=== PATIENT | male | born 1965 | race Caucasian/White ===

== ENCOUNTER 2019-06-14 06:06 | Inpatient (IN) ==
--- NOTE | 2019-05-25 10:20 | PAT Medication Instructions ---
Medication Instructions Date of Service May 25, 2019 Home Medications Sertraline 1 tab PO QAM 05/21/19 [History Confirmed 05/21/19] levothyroxine 112 mcg PO QAM 05/21/19 [History Confirmed 05/21/19] lisinopril 20 mg PO QAM 05/21/19 [History Confirmed 05/21/19] naproxen sodium [Aleve] 220 mg PO DAILY PRN 05/21/19 [History Confirmed 05/21/19] ASK your surgeon for instructions naproxen sodium [Aleve] 220 mg PO DAILY PRN 05/21/19 [History Confirmed 05/21/19] DO NOT take the morning of surgery lisinopril 20 mg PO QAM 05/21/19 [History Confirmed 05/21/19] Take morning of surgery With a small sip of water, OTHERWISE NOTHING TO EAT OR DRINK AFTER MIDNIGHT: Sertraline 1 tab PO QAM 05/21/19 [History Confirmed 05/21/19] levothyroxine 112 mcg PO QAM 05/21/19 [History Confirmed 05/21/19] Other Notes If you have any questions please call us at [phone] or [phone] or [phone] or [phone]
--- NOTE | 2019-05-26 10:40 | Anesthesiology Consultation ---
Date of Service May 26, 2019 Assessment & Plan (1) Encounter for pre-operative examination: Possible difficult intubation: due to anatomy Chart Review Chart Review: Acceptable Risk for Surgery and Patient seen in Pre Admission Testing Teaching & Discussion Pre-Anesthesia Teaching/Discussion Notes: Instructed NPO after midnight before surgery,except medications with 15 cc of water. Medication instructions provided according to the PAT guidelines. History Surgery Operation Date: 06/14/19 11:00 Proposed Procedures p Right Total Knee Arthroplasty - Miguel Freeman Height/Weight Height: 5 ft 11 in Weight: 179.8 kg Allergies Allergy/AdvReac Type Severity Reaction Status Date / Time No Known Allergies Allergy Verified 05/21/19 08:57 Medications Home Medications Medication Instructions Recorded Confirmed Last Taken Sertraline 1 tab PO QAM 05/21/19 05/21/19 Unknown levothyroxine 112 mcg PO QAM 05/21/19 05/21/19 Unknown lisinopril 20 mg PO QAM 05/21/19 05/21/19 Unknown naproxen sodium [Aleve] 220 mg PO DAILY PRN 05/21/19 05/21/19 Unknown Past Medical History Medical History Anxiety Arthritis Hypertension Hypothyroidism Morbid obesity Sleep apnea CPAP Exercise / Class Metabolic Activity II 4-5 Yardwork/Stairs/Walk up hill (one flight of stairs (no chest pain or sob)) Past Surgical History Surgical History History of arthroscopy RIGHT KNEE History of colonoscopy History of herniorrhaphy r/l inguinal (hernia repairs X3 total) Past Anesthesia History No Hx of Anesthesia Complications and No Family Hx of Anesthesia Complications History of PONV No Hx of PONV and Hx of Motion Sickness (mild) Social History Smoking Status: Never smoker tobacco type: smokeless tobacco Do You Dip or Chew Tobacco: Yes (1 CAN PER 3 DAYS- ADVISED NPO AM DOS) Hx Alcohol Use: Yes Alcohol type: beer alcohol intake frequency: 3 or more drinks per day (AT MOST 4 BEERS DAILY (EVENING/NO AM ETOH USE)) Hx Substance Use: Yes substance use type: other Substance Use Type Other:: CBD OIL TOPICALLY TO RIGHT KNEE-1 X A WEEK Review of Systems Patient denies chest pain, shortness of breath, dyspnea on exertion, cough, wheezing, palpitations. Physical Exam Vital Signs VITALS BP 165/95 P 98 TEMP 98.9 SP02 95%RA RESP 18 PHYSICAL Full neck and c-spine range of motion. Full TMJ range of motion. TMD 3 finger breaths (difficult to palpate) Mallampati Score 3 Dentition: upper front right tooth chipped, poor dentition Lungs: clear throughout to auscultation Cardiac: regular rate and rhythm, no murmurs noted Spine: normal Carotid arteries: negative bruit Extremities: no edema Very short, thick neck* Testing Laboratory Results 05/26/19 11:06 05/26/19 11:06 PT 10.4 Seconds (9.0-12.0) 05/26/19 11:06 INR 1.0 (0.9-1.1) 05/26/19 11:06 APTT 27.6 Seconds (21.0-31.0) 05/26/19 11:06 Urine Color Yellow 05/26/19 Unknown Urine Appearance Clear (Clear) 05/26/19 Unknown Urine pH 5.0 (4.5-7.5) 05/26/19 Unknown Ur Specific [place] 1.021 (1.000-1.030) 05/26/19 Unknown Urine Protein Negative (Negative) 05/26/19 Unknown Urine Glucose (UA) Negative (Negative) 05/26/19 Unknown Urine Ketones Negative (Negative) 05/26/19 Unknown Urine Nitrite Negative (Negative) 05/26/19 Unknown Ur Leukocyte Esterase Negative (Negative) 05/26/19 Unknown Blood Type O Positive 05/26/19 11:06 Antibody Screen NEGATIVE 05/26/19 11:06 Electrocardiogram Date: 05/26/19 Findings: + NSR @ (91) Chest X-Ray Date: 05/26/19 Lung volumes are normal. There is no pneumothorax or pleural effusion. There is no consolidation or evidence for pulmonary edema. Cardiac size is at upper limits of normal. IMPRESSION: No acute cardiopulmonary findings.
--- NOTE | 2019-05-26 11:33 | XRay Report ---
XR chest Pre-admission PA/Lat CLINICAL HISTORY: Preoperative evaluation. COMPARISON STUDY: No previous studies for comparison. FINDINGS: Lung volumes are normal. There is no pneumothorax or pleural effusion. There is no consolid ation or evidence for pulmonary edema. Cardiac size is at upper limits of normal. IMPRESSION: No acute cardiopulmonary findings. ACT 112: Negative or not required by law. Electronically signed by: Oracio Diaz M.D. 05/26/2019 11:31 AM
[2019-05-26 12:54] LABS: Appearance Urine Clear (Clear); Bilirubin Urine Negative (Negative); Blood Urine Negative (Negative); Color Urine Yellow; Glucose Urine UA Negative (Negative); Ketones Urine Negative (Negative); Leukocyte Esterase Urine Negative (Negative); Nitrite Urine Negative (Negative); Protein Urine Negative (Negative); Specific Gravity Urine 1.021 (1.000-1.030); Urobilinogen Urine Negative (Negative)
[2019-05-26 12:57] LABS: Eosinophils # (auto) 0.16 K/uL (0-0.5); Eosinophils % (auto) 1.8 %; Hematocrit (blood only) 46.7 % (42-52); Hemoglobin 15.5 g/dL (14.0-18.0); Immature Granulocytes # (auto) 0.01 K/uL (0.00-0.02); Immature Granulocytes % (auto) 0.1 %; Lymphocytes # (auto) 2.26 K/uL (1.2-3.4); Lymphocytes % (auto) 25.7 %; Mean Corpuscular Hemoglobin 30.6 pg (25-34); Mean Corpuscular Hgb Conc 33.2 g/dL (32-36); Mean Corpuscular Volume 92.3 fL (80-100); Mean Platelet Volume 11.2 fL (7.4-10.4); Monocytes % (auto) 9.1 %; Neutrophils # (auto) 5.55 K/uL (1.4-6.5); Neutrophils % (auto) 63.3 %; Platelet Count 190 K/uL (130-400); RDW Coefficient of Variation 13.8 % (11.5-14.5); RDW Standard Deviation 46.6 fL (36.4-46.3); Red Blood Count 5.06 M/uL (4.7-6.1); White Blood Count 8.78 K/uL (4.8-10.8)
[2019-05-26 13:00] LABS: Partial Thromboplastin Time 27.6 Seconds (21.0-31.0); Prothrombin Time 10.4 Seconds (9.0-12.0)
[2019-05-26 13:02] LABS: Albumin Level 3.8 gm/dl (3.4-5.0); BUN Creatinine Ratio 13.7 (10-20); Calcium 9.4 mg/dl (8.5-10.1); Creatinine Clr Calc Pharmacy 116.4 ml/min; Est GFR (African American) 77.7; Est GFR (Non-African American) 67.1; Potassium 4.7 mmol/L (3.5-5.1)
[2019-05-26 13:05] LABS: Bilirubin,Total 0.5 mg/dl (0.2-1); Total Protein 7.8 gm/dl (6.4-8.2)
--- NOTE | 2019-05-26 15:29 | Electrocardiogram Report ---
Test Reason : Blood Pressure : / mmHG Vent. Rate : 091 BPM Atrial Rate : 091 BPM P-R Int : 144 ms QRS Dur : 090 ms QT Int : 384 ms P-R-T Axes : 048 -02 049 degrees QTc Int : 472 ms Normal sinus rhythm Normal ECG No previous ECGs available Confirmed by Ovidio Summers ([id number]) on 05/26/2019 3:29:31 PM Referred By: Miguel Freeman Confirmed By:Ovidio Summers
--- NOTE | 2019-06-11 13:12 | History & Physical Report ---
Date of Service June 11, 2019 Assessment & Plan (1) Degenerative joint disease of right knee: plan is to be admitted and undergo right tka and be dischared with home pt History of Present Illness Chief Complaint: right knee pain Primary Care Provider: Clyde Chiu DO pt has had right knee pain for years. cant do adls and has tried injections, therapy and nsaids without relief. Allergies Allergy/AdvReac Type Severity Reaction Status Date / Time No Known Allergies Allergy Verified 05/21/19 08:57 Home Medications Home Medications Medication Instructions Recorded Confirmed Type Sertraline 1 tab PO QAM 05/21/19 05/21/19 History levothyroxine 112 mcg PO QAM 05/21/19 05/21/19 History lisinopril 40 mg PO QAM 05/21/19 06/09/19 History naproxen sodium [Aleve] 220 mg PO DAILY PRN 05/21/19 05/21/19 History Past Med/Surg History Medical History Anxiety Arthritis Hypertension Hypothyroidism Morbid obesity Sleep apnea CPAP Surgical History History of arthroscopy RIGHT KNEE History of colonoscopy History of herniorrhaphy r/l inguinal (hernia repairs X3 total) Social History Preferred Language: [place]i Communication Ability: Effective Repeat Chief Required: No Beliefs That Will Affect Care: None Current Living Situation: Spouse and Family Other Information That Helps Us Care for You: No Feels Safe at Home: Yes Safety Concerns: Feels Safe At This Time Smoking Status: Never smoker Tobacco Type: smokeless tobacco ; Do You Dip or Chew Tobacco: Yes (1 CAN PER 3 DAYS- ADVISED NPO AM DOS) ; Second Hand Exposure: Yes (AT LOCAL CLUB) ; Hx Alcohol Use: Yes Alcohol type: beer Hx Substance Use: Yes substance use type: other Substance Use Type Other:: CBD OIL TOPICALLY TO RIGHT KNEE-1 X A WEEK Review of Systems All systems reviewed & are unremarkable except as noted in HPI & below Physical Exam Constitutional: WD/WN, vitals as above Neck: trachea midline, no thyromegaly Respiratory: normal respiratory effort, lungs clear to auscultation Cardiovascular: RRR, no murmur, no edema Gastrointestinal (Abdomen): normal bowel sounds, soft, nontender, no hepatosplenomegaly Musculoskeletal: Knee: + limited ROM of knee, + knee ROM with crepitation, + joint line tenderness and + varus alignment
[~2019-06-14 06:06] MED LIST: ACETAMINOPHEN 500 MG TAB PO SCH; BUPIVACAINE LIPOSOME/PF 266 MG, BUPIVACAINE/EPINEPHRINE 50 ML, SODIUM CHLORIDE 0.9% 30 ... INFIL SCH; CEFAZOLIN 3000MG 72.5 ML IV SCH; CeleBREX 200 MG CAP PO SCH; FAMOTIDINE 20 MG TAB PO SCH; LR 500ML BOLUS, THEN 15ML/HR IV SCH; METOCLOPRAMIDE HCL 10 MG TABLET PO SCH; ROPIVACAINE 0.5% HCL/PF 150 MG, BUPIVACAINE 0.5% MPF 30 ML, EPINEPHrine 30MG/30ML (OR U... INSTIL SCH; TRANEXAMIC ACID / 0.7% NACL 1,000 MG/100 ML BAG IV SCH; TRANEXAMIC ACID 1,000 MG **IV Intra-op IV SCH; dexAMETHasone 4 MG TAB PO SCH
[2019-06-14] MEDS ORDERED: ROPIVACAINE 0.5% 5 MG/ML 30 ML VIAL ONE (06:37)
[2019-06-14] MEDS ORDERED: BUPIVACAINE 0.5 % 5 MG/1 ML PF 10ML VIAL ONE (06:37)
--- NOTE | 2019-06-14 06:46 | History & Physical Bridge Note ---
Date of Service June 14, 2019 History & Physical Bridge Note I have examined the patient, reviewed the History & Physical and in the interval since the performance of the History & Physical I have noted the following changes of clinical significance: no changes noted
[2019-06-14] MEDS ORDERED: MIDAZOLAM HCL 1 MG/ML 2ML VIAL ONE ×2 (07:01→08:25)
[2019-06-14] MEDS ORDERED: PROPOFOL IV EMULSION 10 MG/ML 20 ML VIAL IV ONE (07:01)
[2019-06-14] MEDS ORDERED: LIDOCAINE HCL 2% 2 ML VIAL/AMP(20MG/ML) INFIL ONE (07:01)
[2019-06-14] MEDS ORDERED: BACITRACIN INJ 50,000 UNIT VIAL ONE (07:16)
[2019-06-14] MEDS ORDERED: ORTHO JOINT ANESTHETIC ONE (07:16)
[2019-06-14] MEDS ORDERED: ePHEDrine sulfate 50 MG/ML AMP IV PRN (07:39)
[2019-06-14] MEDS ORDERED: ONDANSETRON INJ 2 MG/ML 2 ML VIAL IV PRN ×2 (07:39→10:57)
[2019-06-14] MEDS ORDERED: ATROPINE SULFATE 0.1 MG/ML 10ML SYR IV PRN (07:39)
[2019-06-14] MEDS ORDERED: KETOROLAC 30 MG/ML VIAL IV PRN (07:39)
[2019-06-14] MEDS ORDERED: HYDROmorphone INJ 1 MG/ML SYRINGE IV PRN (07:39)
[2019-06-14] MEDS ORDERED: PHENYLEPHRINE 100MCG/ML 5ML SYR ONE (08:30)
--- NOTE | 2019-06-14 09:08 | Operative Report ---
Post Operative Report Pre & Post Diagnosis Operation Date: 06/14/19 08:15 Pre-Op Diagnosis: RIGHT KNEE OSTEOARTHRITIS Post-Op Diagnosis: RIGHT KNEE OSTEOARTHRITIS I identified the patient and participated in the time-out.: Yes Procedure Operation Date: 06/14/19 08:15 Actual Procedures p Right Total Knee Arthroplasty(Right) - Miguel Freeman Surgeon Miguel Freeman [employer] Foreperson Misael Jung PA-C Estimated Blood Loss 20 Findings Consistent with Post-Op Diagnosis Specimens None Complications none Disposition Disposition: Recovery Room Description of Procedure IMPLANTS USED: [employer] maxney 2 knee size 6 cemented femoral component, a size 6 tibial component, a size 10 PS insert and size 32 all polyethylene patella INDICATIONS: Mr. Brown is a pleasant (male/female) who has unfortunately failed all forms of conservative measures. Therefore, they have decided to undergo elective surgical intervention. All risks and benefits of the surgery were discussed with the patient and the family in entirety. PROCEDURE: The patient was brought to the operating room and properly identified by myself, anesthesia, and staff. Patient was given a spinal anesthesia and placed on the operating table in the supine position. Tourniquets were applied to the right upper thigh. The leg was then prepped and draped in usual sterile fashion. We made a standard midline approach over the patella and dissected down through the subcutaneous tissue to identify the capsule and performed a medial capsulotomy with the patella everted and the knee flexed.The patient matched implant was then put onto the femur. The femur measured to be a size #6. This was then put into place. We made the appropriate cuts and then placed a retractor behind the proximal tibia to retract anteriorly. We then placed the patient matched knee implant on the tibia. It measured to be a size #6. A size #6 guide was then put in place. We used the tibial punch then put the trial components into place. We had very good range of motion, excellent stability, and excellent patella tracking. We removed the trial components and irrigated the wound. We impacted the components in place using antibiotic cement. All excess cement was removed. We then irrigated the wound once more. We closed the capsule with 0 PDS suture, deep dermis and 2-0 Vicryl, and finally the skin with fabián. A sterile dressing was applied. The patient was taken to the recovery room in stable condition. Due to the complex nature of the procedure, the entire surgery was performed with the operational assistance of Misael Jung PA-C. The anesthetic assistant was under direct supervision, was involved in the actual performance of all aspects of the surgical procedure including hemostasis, tissue retraction and incision, instrument management, patient positioning, and wound closure. I attest to the content of the Intraoperative Record and any orders documented therein. Any exceptions are noted below.
--- NOTE | 2019-06-14 10:36 | Anesthesiology Progress Note ---
Date of Service June 14, 2019 Anesthesia Post Procedure Vital Signs Vital Signs: Temp Pulse Pulse Resp BP Pulse Ox 06/14/19 10:35 65 16 117/73 94 06/14/19 10:20 36.4 C L 63 18 153/80 H 94 06/14/19 10:10 67 18 126/95 95 06/14/19 10:00 67 16 150/82 H 97 06/14/19 09:50 69 16 119/68 98 06/14/19 09:44 36.6 C 78 16 98/58 L 96 06/14/19 06:40 36.9 C 81 20 98 Pain Intensity Right Knee: Pain Intensity: 4 Transfer of Care Handoff Completed per policy Notes Mental Status: alert / awake / arousable Patient Amnestic to Procedure: Yes Nausea / Vomiting: adequately controlled Pain: adequately controlled Airway Patency, RR, SpO2: stable & adequate BP & HR: stable & adequate Hydration State: stable & adequate Neuraxial Anesthesia: was administered and sensory block is resolving Anesthetic Complications: no major complications apparent
[2019-06-14] MEDS ORDERED: METOCLOPRAMIDE HCL INJ 5 MG/ML 2 ML VIAL IV PRN (10:57)
[2019-06-14] MEDS ORDERED: bisacodyL 10 MG SUPP PR PRN (10:57)
[2019-06-14] MEDS ORDERED: MAGNESIUM HYDROXIDE SUSP 30 ML UDC PO PRN (10:57)
[2019-06-14] MEDS ORDERED: NALOXONE HCL 0.4 MG/1 ML VIAL/CARP IV PRN (10:57)
[2019-06-14] MEDS: SODIUM CHLORIDE 0.9% 1000ML 1,000 ML IV SCH ×2 (11:40→21:35)
[2019-06-14] MEDS: ACETAMINOPHEN 500 MG TAB PO SCH ×2 (13:41→21:50)
[2019-06-14] MEDS: CEFAZOLIN 2000MG 2,000 MG/15 ML SYR IV SCH ×2 (16:43→23:57)
[2019-06-14] MEDS ORDERED: TRANEXAMIC ACID / 0.7% NACL 1,000 MG/100 ML BAG IV SCH (17:00)
[2019-06-14] MEDS ORDERED: Nursing to Pharmacy Communication ONE (18:05)
[2019-06-14] MEDS ORDERED: SENNA 8.6 MG TAB PO SCH (21:00)
[2019-06-14] MEDS: ASPIRIN 81 MG ECTAB PO SCH (21:50)
[2019-06-14] MEDS: DOCUSATE SODIUM 100 MG CAP PO SCH (21:50)
[2019-06-14] MEDS: OXYCODONE HCL IR 5 MG TAB (IMMEDIATE RELEASE) PO PRN (21:50)
[2019-06-15] MEDS: ACETAMINOPHEN 500 MG TAB PO SCH ×2 (05:15→13:16)
[2019-06-15 05:42] LABS: Hematocrit (blood only) 41.5 % (42-52); Hemoglobin 13.5 g/dL (14.0-18.0); Mean Corpuscular Hemoglobin 30.1 pg (25-34); Mean Corpuscular Hgb Conc 32.5 g/dL (32-36); Mean Corpuscular Volume 92.6 fL (80-100); Mean Platelet Volume 10.4 fL (7.4-10.4); Platelet Count 191 K/uL (130-400); RDW Coefficient of Variation 13.7 % (11.5-14.5); RDW Standard Deviation 46.1 fL (36.4-46.3); Red Blood Count 4.48 M/uL (4.7-6.1); White Blood Count 13.12 K/uL (4.8-10.8)
[2019-06-15 06:12] LABS: BUN Creatinine Ratio 19.7 (10-20); Calcium 8.5 mg/dl (8.5-10.1); Creatinine Clr Calc Pharmacy 128.5 ml/min; Est GFR (African American) 87.1; Est GFR (Non-African American) 75.1; Potassium 4.6 mmol/L (3.5-5.1)
[2019-06-15] MEDS ORDERED: LEVOTHYROXINE SODIUM 112 MCG TABLET PO SCH (06:30)
[2019-06-15] MEDS ORDERED: dexAMETHasone 10 MG in SYRINGE 0 ML IV SCH (08:00)
--- NOTE | 2019-06-15 08:11 | Anesthesiology Progress Note ---
Date of Service June 15, 2019 Anesthesia Post Procedure Vital Signs Vital Signs: Temp Pulse Pulse Resp BP Pulse Ox 06/15/19 07:49 36.6 C 71 18 150/85 H 97 06/15/19 03:54 36.5 C 71 18 131/75 97 06/14/19 23:41 36.7 C 80 18 128/75 96 06/14/19 19:51 37.1 C 85 16 156/85 H 95 06/14/19 16:57 82 18 142/85 H 95 06/14/19 15:28 36.7 C 79 16 160/92 H 96 06/14/19 13:27 82 18 162/85 H 97 06/14/19 12:40 70 16 123/81 95 06/14/19 11:44 36.5 C 72 16 136/85 95 06/14/19 11:13 64 18 164/95 H 96 06/14/19 10:45 36.7 C 72 16 131/72 96 06/14/19 10:35 65 16 117/73 94 06/14/19 10:20 36.7 C 63 18 153/80 H 94 06/14/19 10:10 67 18 126/95 95 06/14/19 10:00 67 16 150/82 H 97 06/14/19 09:50 69 16 119/68 98 06/14/19 09:44 36.6 C 78 16 98/58 L 96 Pain Intensity Right Knee: Pain Intensity: 3 Notes Mental Status: alert / awake / arousable Nausea / Vomiting: adequately controlled Pain: adequately controlled Airway Patency, RR, SpO2: stable & adequate BP & HR: stable & adequate Hydration State: stable & adequate Neuraxial Anesthesia: was administered and sensory block resolved Anesthetic Complications: no major complications apparent and Pt Satisfied with anesthetic care
[2019-06-15] MEDS: OXYCODONE HCL IR 5 MG TAB (IMMEDIATE RELEASE) PO PRN ×2 (08:52→17:34)
[2019-06-15] MEDS: DOCUSATE SODIUM 100 MG CAP PO SCH (08:54)
[2019-06-15] MEDS: ASPIRIN 81 MG ECTAB PO SCH (08:54)
[2019-06-15] MEDS ORDERED: SERTRALINE HCL 50 MG TABLET PO SCH (09:00)
[2019-06-15] MEDS ORDERED: MULTIVITAMIN TAB PO SCH (09:00)
[2019-06-15] MEDS ORDERED: lisinopriL 40 MG TAB PO SCH (09:00)
--- NOTE | 2019-06-15 09:59 | Orthopedic Progress Note ---
Date of Service June 15, 2019 Assessment & Plan (1) Status post right knee replacement: 53 yo male stable POD #1 s/p right TKA 1. Med management 2. DVT prophylaxis- ASA, SCDs 3. PT/OT 4. D/C planning- home w/ HH Subjective Pt resting in bed, pain controlled, denies complaints Physical Exam Physical Exam: El in place but does not appear to be working because dressing blood soaked and had to be reinforced with ABDs. Toes mobile, NVI. Results & Data ([facility]) Vital Signs (Past 12 Hours) Vital Signs Temp Pulse Resp BP Pulse Ox 06/15/19 07:49 36.6 C 71 18 150/85 H 97 06/15/19 03:54 36.5 C 71 18 131/75 97 06/14/19 23:41 36.7 C 80 18 128/75 96 Laboratory Results 06/15/19 06/15/19 Range/Units 05:10 05:10 WBC 13.12 H (4.8-10.8) K/uL RBC 4.48 L (4.7-6.1) M/uL Hgb 13.5 L (14.0-18.0) g/dL Hct 41.5 L (42-52) % MCV 92.6 (80-100) fL MCH 30.1 (25-34) pg MCHC 32.5 (32-36) g/dL RDW Std Deviation 46.1 (36.4-46.3) fL RDW Coeff of Francis 13.7 (11.5-14.5) % Plt Count 191 (130-400) K/uL MPV 10.4 (7.4-10.4) fL Sodium 138 (136-145) mmol/L Potassium 4.6 (3.5-5.1) mmol/L Chloride 106 (98-107) mmol/L Carbon Dioxide 27 (21-32) mmol/L Anion Gap 5.0 (3-11) BUN 22 H (7-18) mg/dl Creatinine 1.12 (0.6-1.4) mg/dl Est Cr Clr Drug Dosing 128.5 ml/min Est GFR ( Amer) 87.1 Est GFR (Non-Af Amer) 75.1 BUN/Creatinine Ratio 19.7 (10-20) Glucose 139 H (70-99) mg/dl Calcium 8.5 (8.5-10.1) mg/dl
== END 2019-06-15 18:33 | disposition home health service (06) | DRG 470 ==
LOC: ASU 06:06 → 3E 09:48